=== PATIENT | female | born 1990 | race Caucasian/White ===

== ENCOUNTER 2016-05-21 18:18 | Emergency (ER) | payer OTHER ==
--- NOTE | ~2016-05-21 | EKG ---
PATIENT: CHRISTIN LIVE UNIT #: [id number] Ventricular Rate: 81 BPM Atrial Rate: 81 BPM P-R Interval: 170 ms QRS Duration: 86 ms Q-T Interval: 368 ms QTC Calculation(Bezet): 427 ms P [place]: 44 degrees Calculated R [place]: 55 degrees Calculated T [place]: 44 degrees Diagnosis Line: Normal sinus rhythm with sinus arrhythmia Diagnosis Line: Normal ECG Diagnosis Line: No previous ECGs available Diagnosis Line: Confirmed by LATONYA SHARP MD ([id number]) on 05/22/2016 Diagnosis Line: 2:50:38 PM INTERPRETING MD: LILA CASTRO
--- NOTE | ~2016-05-21 | CR72 ---
[facility] A Service of [facility] RADIOLOGY TEXT RESULTS PATIENT: CHRISTIN LIVE LOCATION: [facility] : [birth year] UNIT #: [id number] AGE: [address]: Kirby Calderon MD SEX: F ORDER DR: [id number] [facility] [address] [place], [place] [address] [id number] E MR#: [id number] Acc #: [id number] NAME: CHRISTIN LIVE : 1990 SEX: F STUDY DATE/TIME: 05/21/2016 18:23 UNIT: [facility] ROOM: STUDY DESCRIPTION: CR Chest Single View Portable Attending Physician: Kirby Calderon M.D. Ordering Physician: Kirby Calderon M.D. Primary Care Physician: [facility], [facility]. MEDICAL IMAGING REPORT This report is preliminary unless electronic signature is present EXAM Portable chest, 05/21/16 HISTORY Chest pain for 1 day radiating into back, feels like someone is squeezing heart. Began yesterday. Smoker 3 years. COMPARISON STUDIES 07/17/15 TECHNIQUE AP radiograph of the chest is presented. FINDINGS Heart and mediastinum normal in size and contour. The lungs are well inflated bilaterally and clear with no evidence of acute pulmonary disease, pleural effusion or pneumothorax. No suspicious nodule. Bony structures unremarkable. Dictated by... Uriel Schultz M.D. THIS IS AN ELECTRONICALLY VERIFIED REPORT Uriel Schultz M.D. at 05/24/2016 6:09 PM Jayna TD: 05/22/2016 13:47 JOB #: [id number] MEDICAL IMAGING REPORT Page 1 of 1 COPY
[~2016-05-21 18:18] MED LIST: AFRIN NASAL SPRAY; ALBUTEROL17 GM INH; AMOXICILLIN500 M1 PO; BACTRIM DS TABL1 TA1 PO; BACTRIM DS TABL1 TA2 PO; BIRTH CONTROL PILLS; BROMFED DM PO; BUPROPION HCL75 MG PO; CITALOPRAM PO; DELTASONE20 MG PO; DIFLUCAN PO; FLAGYL PO; IBUPROFEN600 MG PO; MOTRIN400 MG PO; NO MEDICATIONS; PHENERGAN PO; PHENERGAN25 M1 PO; ROBITUSSIN AC PO; SUDAFED30 M1 PO; VOLTAREN75 MG PO; ZOVIRAX400 MG PO
[2016-05-21 18:27] LABS: BASOPHIL% 0.3 % (0-2.5); EOSINOPHIL# 0.2 X10e3 (0-0.7); EOSINOPHIL% 1.7 % (0.0-7.0); HEMATOCRIT 40.9 % (35.0-45.0); HEMOGLOBIN 13.2 gm/dL (12.0-16.0); LYMPHOCYTE% 26.6 % (17.0-45.0); MEAN CELL VOLUME 88.3 FL (83-96); MEAN CORPUSCULAR HEMOGLOBIN 28.5 PG (28-34); MEAN CORPUSCULAR HGB CONC 32.3 g/dL (30-36); MEAN PLATELET VOLUME 8.8 FL (6.5-11.5); MONOCYTE# 0.7 X10e3 (0-1.0); MONOCYTE% 6.4 % (3.0-12.0); NEUTROPHIL# 7.3 X10e3 (1.5-7.1); PLATELET COUNT 266 X10e3 (140-420); RED BLOOD COUNT 4.63 X10e (3.90-5.30); WHITE BLOOD COUNT 11.3 X10e3 (4.0-10.5)
[2016-05-21 18:36] LABS: DIFF IND NO
[2016-05-21 18:49] LABS: ALBUMIN SERUM 4.5 g/dL (3.5-5.0); ALKALINE PHOSPHATASE 87 U/L (32-92); ALT (SGPT) 19 U/L (10-40); AST (SGOT) 18 U/L (10-42); BILIRUBIN,TOTAL 0.4 mg/dL (0.2-2.0); BLOOD UREA NITROGEN 14 mg/dL (9-23); CALCIUM SERUM 9.1 mg/dL (8.4-10.2); CARBON DIOXIDE 28 mmol/L (22-31); CHLORIDE 104 mmol/L (100-111); CREATININE SERUM 0.7 mg/dL (0.6-1.4); GLOM FILT RATE Estimated 121.3 mL/min (>60); GLUCOSE FASTING 85 mg/dL (70-110); LIPASE 17 U/L (22-51); POTASSIUM 3.5 mmol/L (3.5-5.1); PROTEIN TOTAL SERUM 7.7 g/dL (6.0-8.3); SODIUM 140 mmol/L (135-145)
[2016-05-21 18:54] LABS: BILIRUBIN, DIRECT <0.1 mg/dL (0.0-0.2); BILIRUBIN,INDIRECT 0.3 mg/dL (0.0-0.9)
[2016-05-21 19:14] LABS: URINE SOURCE CLEAN CATCH
[2016-05-21 19:20] LABS: URINE APPEARANCE CLOUDY; URINE BILIRUBIN NEG (NEG); URINE BLOOD NEG (NEG); URINE COLOR YELLOW; URINE GLUCOSE NEG (NEG); URINE KETONE NEG (NEG); URINE LEUKOCYTE ESTERASE 1+ (NEG); URINE NITRATE NEG (NEG); URINE PROTEIN NEG (NEG); URINE SPECIFIC GRAVITY 1.021 (1.003-1.035); URINE UROBILINOGEN 0.2 MG/DL (NEG)
[2016-05-21 19:22] LABS: CULTURE INDICATED? YES; URINE BACTERIA AUWI NEG (NEGATIVE); URINE SQUAMOUS EPITHELIAL CELL OCC /[HPF]
[2016-05-21 19:30] LABS: AMPHETAMINE NEG (NEG); BARBITURATES NEG (NEG); BENZODIAZEPINES NEG (NEG); COCAINE NEG (NEG); MARIJUANA NEG (NEG); OPIATES NEG (NEG); TRICYCLIC ANTIDEPRESSANTS NEG (NEG); U METHADONE NEG (NEG)
== END 2016-05-21 20:30 | disposition home or self-care (01) ==
LOC: CED 18:18
PROVIDERS: Emergency Medicine
DX: R07.89 Other chest pain (principal); F41.9 Anxiety disorder, unspecified; F17.200 Nicotine dependence, unspecified, uncomplicated
CPT/HCPCS: 36415; 71010; 80048; 80076; 80307; 81003; 83690; 85025; 87086; 93005; 96361; 96374; 96375; 99284; C9113; J2405